=== PATIENT | male | born 1985 | race African-American/Black ===

== ENCOUNTER → 2016-05-06 | Emergency (ER) | payer OTHER ==
[2016-05-06 07:41] VITALS: BP 110/73
--- NOTE | 2016-05-06 08:01 | PROVIDER DOCUMENTATION ---
HPI-Psychological Disorder - General Chief Complaint: Request RX Stated Complaint: ANXIETY/CHEST PAIN Time Seen by Provider: 05/06/16 07:54 Source: patient Allergies/Adverse Reactions: Patient Allergies Allergy/AdvReac Type Severity Reaction Status Date / Time risperidone Allergy Severe involuntary Verified 03/05/16 08:11 lingual movement buspirone HCl * [From BuSpar] Allergy Mild RASH Verified 03/05/16 08:11 mirtazapine [From Remeron] Allergy Mild RASH Verified 03/05/16 08:11 Benzodiazepines Allergy hx of Verified 03/05/16 08:11 abuse of benzos Opioids - Morphine Analogues Allergy hx opioid Verified 03/05/16 08:11 abuse ziprasidone HCl * AdvReac Intermediate "HYPES ME Verified 03/05/16 08:11 [From Geodon] UP" ziprasidone mesylate * AdvReac Intermediate "HYPES ME Verified 03/05/16 08:11 [From Geodon] UP" Home Medications: Home Medication List Medication Instructions Recorded Confirmed Last Taken Type Alprazolam E.r. [Xanax Xr] 1 mg PO QAM #0 tablet 07/05/15 03/05/16 Unknown Rx Fluoxetine [Prozac] 20 mg PO QAM #0 capsule 07/05/15 03/05/16 Unknown Rx Olanzapine [Zyprexa] 15 mg PO BID #0 tablet 07/05/15 03/05/16 Unknown Rx Omeprazole [Prilosec] 40 mg PO DAILY@0700 #0 capsule 07/05/15 03/05/16 Unknown Rx Alprazolam 1 mg PO TID #15 tablet 08/29/15 03/05/16 Unknown Rx Hydroxyzine Pamoate [Vistaril] 25 mg PO Q6H PRN PRN #20 capsule 09/19/15 Unknown Rx Alprazolam [Xanax] 1 mg PO BID #20 tablet 09/25/15 03/05/16 Unknown Rx Alprazolam [Xanax] 1 mg PO TID #30 tablet 03/05/16 Unknown Rx Alprazolam [Xanax] 1 mg PO TID #30 tablet 04/02/16 Unknown Rx Alprazolam [Xanax] 1 mg PO BID #14 tablet 04/16/16 Unknown Rx Alprazolam [Xanax] 1 mg PO BID PRN PRN #30 tablet 04/22/16 Unknown Rx Alprazolam 1 mg PO BID PRN PRN #30 tablet 05/06/16 Unknown Rx - History of Present Illness-Psych Nature of Presenting Problem: psych disabled mentally Onset/Duration: reports: unsure Timing: reports: still present Severity: reports: mild Psychiatric Complaints: reports: anxiety, paranoid Substance Use: reports: benzodiazepines Previous psych related hospitalizations?: Yes Patient arrived by:: private car Similar Symptoms Previously?: Yes Review of Systems - Adult - REVIEW OF SYSTEMS - ADULT Constitutional: reports: no symptoms reported Eyes: reports: no symptoms reported Ears, Nose, Mouth & Throat: reports: no symptoms reported Cardiovascular: reports: no symptoms reported Respiratory: reports: no symptoms reported Gastrointestinal: reports: no symptoms reported Genitourinary: reports: no symptoms reported Musculoskeletal: reports: no symptoms reported Integumentary: reports: no symptoms reported Neurological: reports: no symptoms reported Psychiatric: reports: no symptoms reported Endocrine: reports: no symptoms reported Hematologic/Lymphatic: reports: no symptoms reported Allergic/Immunologic: reports: no symptoms reported All Other Systems: Reviewed and Negative Past History - Adult - PAST MEDICAL HISTORY-ADULT Review of Records: reports: Nursing Assessment Review, Medications Reviewed, Social history reviewed & non-contributory. Major Childhood Illnesses: reports: denies history Cardiovascular: reports: hyperlipidemia Respiratory: reports: sleep apnea Gastrointestinal: reports: denies history Obstetrical/Gynecological: reports: denies history Genitourinary: reports: denies history Musculoskeletal: reports: denies history Neurological: reports: Seizures/Epilepsy Psychiatric: reports: anxiety, ptsd, schizophrenia Endocrine/Immune: reports: thyroid disorder Other Conditions: reports: denies history - PRIOR SURGERIES/PROCEDURES Surgical/Procedure History: reports: none - PRIOR HOSPITALIZATIONS Prior Hospitalizations: reports: for other non-related - IMMUNIZATION STATUS Childhood Immunizations: See Nurse Assessment Flu Vaccine: See Nurse Assessment - FAMILY HISTORY Family History: reviewed, not pertinent Physical Exam-Psych Focus - Physical Exam-Psych Initial Vital Signs Reviewed: Yes Appearance: appropriate appearance, appropriate insight, neat, no apparent distress, no memory impairment, denies illness, alert, anxious Neurological: alert Behavior/Eye Contact/Speech: cooperative Thoughts/Hallucinations: no apparent hallucination HENMT: normocephalic/atraumatic Neck: supple Respiratory: no respiratory distress Cardiovascular: regular rate, rhythm Abdominal Exam: soft Lymphatic: no adenopathy Back Exam: no CVA tenderness Extremity: normal range of motion Integumentary: normal color Departure - Departure Time of Disposition Order: 07:58 DIAGNOSIS: Anxiety Disposition: HOME 01 Certified Medical Emergency: Emergent Condition: Stable Additional Instructions: ED Follow Up Instructions: You have been treated by a care provider in the Emergency Department. These instructions are being provided to you so you can have an understanding of how to care for yourself upon discharge. Upon discharge from the Emergency Department, you are responsible for making arrangements for follow-up care by a physician of your choice. Take all prescribed medications as directed. Return to the Emergency Department immediately for any new or worsening symptoms. You may call the Physician Referral phone number at [phone] to obtain a list of Physicians who are taking new patients. Prescriptions: Alprazolam 1 mg PO BID PRN PRN #30 tablet PRN Reason: Anxiety
== END | disposition home or self-care (01) ==
LOC: P.ED 07:29
DX: F41.9 Anxiety disorder, unspecified (principal); R07.9 Chest pain, unspecified; E07.9 Disorder of thyroid, unspecified; F43.10 Post-traumatic stress disorder, unspecified; F20.9 Schizophrenia, unspecified; Z79.899 Other long term (current) drug therapy
CPT/HCPCS: 99281

== ENCOUNTER 2016-05-20 07:41 | Emergency (ER) ==
[2016-05-20] MEDS ORDERED: XANAX PO ONE (08:03)
--- NOTE | 2016-05-20 09:07 | PROVIDER DOCUMENTATION ---
HPI-General Adult - General Source: patient - History of Present Illness -Gen Adult Nature of Presenting Problems: 31 yo M presents to the ER with complaint of running out of his Xanax, requesting another Rx. Pt states he smoked marijuana this morning. Complains his heart is racing and he is feeling anxious. Associated Symptoms: reports: anxiety <Ros Gonzalez - Last Filed: 05/20/16 09:28> <Lionel Herrera - Last Filed: 05/20/16 09:35> - General Chief Complaint: Request RX Stated Complaint: "ANXIETY" Time Seen by Provider: 05/20/16 07:56 Allergies/Adverse Reactions: Patient Allergies Allergy/AdvReac Type Severity Reaction Status Date / Time risperidone Allergy Severe involuntary Verified 03/05/16 08:11 lingual movement buspirone HCl * [From BuSpar] Allergy Mild RASH Verified 03/05/16 08:11 mirtazapine [From Remeron] Allergy Mild RASH Verified 03/05/16 08:11 Benzodiazepines Allergy hx of Verified 03/05/16 08:11 abuse of benzos Opioids - Morphine Analogues Allergy hx opioid Verified 03/05/16 08:11 abuse ziprasidone HCl * AdvReac Intermediate "HYPES ME Verified 03/05/16 08:11 [From Geodon] UP" ziprasidone mesylate * AdvReac Intermediate "HYPES ME Verified 03/05/16 08:11 [From Geodon] UP" Home Medications: Home Medication List Medication Instructions Recorded Confirmed Last Taken Type Alprazolam E.r. [Xanax Xr] 1 mg PO QAM #0 tablet 07/05/15 03/05/16 Unknown Rx Fluoxetine [Prozac] 20 mg PO QAM #0 capsule 07/05/15 03/05/16 Unknown Rx Olanzapine [Zyprexa] 15 mg PO BID #0 tablet 07/05/15 03/05/16 Unknown Rx Omeprazole [Prilosec] 40 mg PO DAILY@0700 #0 capsule 07/05/15 03/05/16 Unknown Rx Alprazolam 1 mg PO TID #15 tablet 08/29/15 03/05/16 Unknown Rx Hydroxyzine Pamoate [Vistaril] 25 mg PO Q6H PRN PRN #20 capsule 09/19/15 Unknown Rx Alprazolam [Xanax] 1 mg PO BID #20 tablet 09/25/15 03/05/16 Unknown Rx Alprazolam [Xanax] 1 mg PO TID #30 tablet 03/05/16 Unknown Rx Alprazolam [Xanax] 1 mg PO TID #30 tablet 04/02/16 Unknown Rx Alprazolam [Xanax] 1 mg PO BID #14 tablet 04/16/16 Unknown Rx Alprazolam [Xanax] 1 mg PO BID PRN PRN #30 tablet 04/22/16 Unknown Rx Alprazolam 1 mg PO BID PRN PRN #30 tablet 05/06/16 Unknown Rx Alprazolam 1 mg PO BID PRN PRN #30 tablet 05/20/16 Unknown Rx Review of Systems - Adult - REVIEW OF SYSTEMS - ADULT Constitutional: denies: chills, fever Eyes: reports: no symptoms reported Ears, Nose, Mouth & Throat: reports: no symptoms reported Cardiovascular: reports: irregular heart rate (tachycardia). denies: chest pain Respiratory: denies: cough, shortness of breath Gastrointestinal: reports: no symptoms reported Genitourinary: reports: no symptoms reported Musculoskeletal: reports: no symptoms reported Integumentary: reports: no symptoms reported Neurological: reports: no symptoms reported Psychiatric: reports: anxiety. denies: suicidal thoughts Endocrine: reports: no symptoms reported Hematologic/Lymphatic: reports: no symptoms reported Allergic/Immunologic: reports: no symptoms reported All Other Systems: Reviewed and Negative <Ros Gonzalez - Last Filed: 05/20/16 09:28> Past History - Adult - PAST MEDICAL HISTORY-ADULT Review of Records: reports: Nursing Assessment Review, Medications Reviewed Cardiovascular: reports: hyperlipidemia Respiratory: reports: sleep apnea Neurological: reports: Seizures/Epilepsy Psychiatric: reports: anxiety, ptsd, schizophrenia Endocrine/Immune: reports: thyroid disorder - PRIOR SURGERIES/PROCEDURES Surgical/Procedure History: reports: none - PRIOR HOSPITALIZATIONS Prior Hospitalizations: reports: for other non-related - IMMUNIZATION STATUS Childhood Immunizations: See Nurse Assessment Flu Vaccine: See Nurse Assessment <Ros Gonzalez - Last Filed: 05/20/16 09:28> Physical Exam-General - PHYSICAL EXAM-ADULT Initial Vital Signs Reviewed: Yes - CONSTITUTIONAL General Appearance: alert, no apparent distress - EYES Eyes: PERRL/EOMI, pink conjunctivae - HEAD, EARS, NOSE, MOUTH & THROAT HENMT: normocephalic/atraumatic, normal ENT inspection - NECK Neck: supple, normal inspection - RESPIRATORY Respiratory: no respiratory distress, no accessory muscle use - CARDIOVASCULAR Cardiovascular: normal peripheral pulses, tachycardia - MUSCULOSKELETAL Back Exam: no CVA tenderness, no vertebral tenderness Extremity: normal gait, normal inspection - SKIN Integumentary: normal color, warm/dry - NEUROLOGIC Neurologic: grossly normal, no motor/sensory deficits - PSYCHIATRIC Psych/Mental Status: normal mood/affect, normal thought content, normal thought process, oriented x 3 <Ros Gonzalez - Last Filed: 05/20/16 09:28> Progress - PLAN OF CARE/RESULTS Progress/Plan/Lab Results: Vital Signs Temp Pulse Resp BP Pulse Ox 05/20/16 07:46 98.2 F 117 H 18 96/51 99 risperidone Allergy (Severe, Verified 03/05/16 08:11) involuntary lingual movement with risperdal consta buspirone HCl * [From BuSpar] Allergy (Mild, Verified 03/05/16 08:11) RASH mirtazapine [From Remeron] Allergy (Mild, Verified 03/05/16 08:11) RASH Benzodiazepines Allergy (Verified 03/05/16 08:11) hx of abuse of benzos Opioids - Morphine Analogues Allergy (Verified 03/05/16 08:11) hx opioid abuse ziprasidone HCl * [From Geodon] Adverse Reaction (Intermediate, Verified 08:11) "HYPES ME UP" ziprasidone mesylate * [From Geodon] Adverse Reaction (Intermediate, Verified 08:11) "HYPES ME UP" Alprazolam E.r. [Xanax Xr] 1 mg PO QAM #0 tablet 07/05/15 Fluoxetine [Prozac] 20 mg PO QAM #0 capsule 07/05/15 Olanzapine [Zyprexa] 15 mg PO BID #0 tablet 07/05/15 Omeprazole [Prilosec] 40 mg PO DAILY@0700 #0 capsule 07/05/15 Alprazolam 1 mg PO TID #15 tablet 08/29/15 Hydroxyzine Pamoate [Vistaril] 25 mg PO Q6H PRN PRN #20 capsule 09/19/15 Alprazolam [Xanax] 1 mg PO BID #20 tablet 09/25/15 Alprazolam [Xanax] 1 mg PO TID #30 tablet 03/05/16 Alprazolam [Xanax] 1 mg PO TID #30 tablet 04/02/16 Alprazolam [Xanax] 1 mg PO BID #14 tablet 04/16/16 Alprazolam [Xanax] 1 mg PO BID PRN PRN #30 tablet 04/22/16 Alprazolam 1 mg PO BID PRN PRN #30 tablet 05/06/16 Orders Category Date Time Status Alprazolam [Xanax] Med 05/20/16 08:03 Discontinued 1 mg PO NOW ONE <Ros Gonzalez - Last Filed: 05/20/16 09:28> Departure - Departure Time of Disposition Order: 09:28 Certified Medical Emergency: Emergent <Ros Gonzalez - Last Filed: 05/20/16 09:28> - Departure Time of Disposition Order: 09:35 <Lionel Herrera - Last Filed: 05/20/16 09:35> - Departure DIAGNOSIS: Anxiety, Prescription refill Disposition: HOME 01 Condition: Stable Prescriptions: Alprazolam 1 mg PO BID PRN PRN #30 tablet PRN Reason: Anxiety Referrals: Sergio Obrien [Primary Care Provider] - Attestation - Scribe Verification/Attestation Scribe:: Ros Gonzalez Acting as Scribe for:: Lionel Herrera Scribe documention review:: This chart was documented by a scribe and accurately reflects the service the provider performed and the decisions made by the provider. <Ros Gonzalez - Last Filed: 05/20/16 09:28> Physician Attestation
[2016-05-20 09:36] VITALS: BP 103/70
== END 2016-05-20 09:47 | disposition home or self-care (01) ==
LOC: P.ED 07:41
DX: Z76.0 Encounter for issue of repeat prescription (principal); F41.9 Anxiety disorder, unspecified; R00.0 Tachycardia, unspecified; F43.10 Post-traumatic stress disorder, unspecified; F20.9 Schizophrenia, unspecified; E07.9 Disorder of thyroid, unspecified; Z79.899 Other long term (current) drug therapy
CPT/HCPCS: 99282

== ENCOUNTER 2016-11-10 03:42 | Inpatient (IN) ==
[2016-11-10 04:09] LABS: MANUAL DIFF NEEDED? NO
[2016-11-10 04:17] LABS: BASO% 0.4 % (0.0-0.8); EOS# 0.43 X1000 (0.0-0.7); EOS% 9.1 % (0.0-10.0); HEMATOCRIT 41.8 % (42.0-52.0); HEMOGLOBIN 14.8 g/dL (14.0-18.0); IMM GRAN# 0.02 X1000 (0.0-0.04); IMM GRAN% 0.4 % (0.0-0.5); LYMPH# 1.54 X1000 (1.2-3.4); LYMPH% 32.6 % (20.5-51.1); MCH 30.8 PG (27-31); MCHC 35.4 g/dL (33-37); MCV 86.9 FL (81-99); MONO# 0.48 X1000 (0.11-0.59); MONO% 10.2 % (1.7-9.3); MPV 9.8 FL (7.4-10.4); NEUT% 47.3 % (42.2-75.2); PLT 249 X1000 (130-400); RBC 4.81 XMIL (4.7-6.1)
[2016-11-10 04:32] LABS: ACETAMINOPHEN < 1.2 ug/mL (10-30); AGAP 13; ALBUMIN 4.4 g/dL (3.5-5.0); ALKALINE PHOSPHATASE 38 U/L (32-122); BUN 10 mg/dL (8-22); CALCIUM 8.7 mg/dL (8.8-10.2); CHLORIDE 97 mmol/L (98-107); COSMO 269; GOT 20 U/L (10-34); GPT 22 U/L (10-44); POTASSIUM 3.6 mmol/L (3.5-5.1); SODIUM 135 mmol/L (136-145); TCO2 25 mmol/L (25-35); TOTAL PROTEIN 7.8 g/dL (6.3-8.3)
[2016-11-10 04:34] LABS: CK PROFILE 375 U/L (24-204)
[2016-11-10] MEDS ORDERED: NS 1,000 ML IV ONE (04:39)
[2016-11-10] MEDS ORDERED: NS 3,000 ML IV ONE (04:39)
[2016-11-10 04:52] LABS: CK INDEX 0.6 (0.0-2.5); CK-MB 2.26 ng/mL (0.0-5.0)
[2016-11-10] MEDS ORDERED: XYLOCAINE 2% JELLY UROJECT ONE (07:36)
[2016-11-10 08:05] LABS: URINE CULTURE PL NEEDED? NO; URINE SOURCE CATH
[2016-11-10 08:09] LABS: UR AMPHETAMINES QUAL NONE DETECTED (NONE DETECT); UR BARBITUATES QUAL NONE DETECTED (NONE DETECT); UR BENZODIAZEPIN QUAL PRESUMPTIVE POSITIVE (NONE DETECT); UR CANNABINOIDS QUAL NONE DETECTED (NONE DETECT); UR COCAINE QUAL NONE DETECTED (NONE DETECT); UR MDMA QUAL NONE DETECTED (NONE DETECT); UR METHADONE QUAL NONE DETECTED (NONE DETECT); UR METHAMPHETAMINE QUAL PRESUMPTIVE POSITIVE (NONE DETECT); UR OPIATES QUAL NONE DETECTED (NONE DETECT); UR OXYCODONE QUAL NONE DETECTED (NONE DETECT); UR PCP QUAL NONE DETECTED (NONE DETECT); UR TCA QUAL NONE DETECTED (NONE DETECT)
[2016-11-10 08:17] LABS: BILIRUBIN URINE NEGATIVE (NEGATIVE); BLOOD URINE NEGATIVE (NEGATIVE); CLARITY CLEAR (CLEAR); COLOR YELLOW; GLUCOSE URINE NEGATIVE (NEGATIVE); LEUKOCYTES URINE NEGATIVE (NEGATIVE); NITRITE URINE NEGATIVE (NEGATIVE); PROTEIN URINE NEGATIVE (NEGATIVE); UROBILINOGEN URINE NORMAL
[2016-11-10 08:19] LABS: URINE EPITHELIAL CELLS <10 /HPF (<10)
--- NOTE | 2016-11-10 08:58 | Diag Imaging Result Doc PS360 ---
EXAM: CHEST-PORTABLE HISTORY: AMS TECHNIQUE: Single view of the chest was performed portably. COMPARISON: 06/11/2016 FINDINGS: The cardiomediastinal silhouette is within normal limits. The pulmonary vasculature is not congested. No infiltrate, effusion, or pneumothorax is appreciated. IMPRESSION: No acute cardiopulmonary abnormality is identified. Electronically signed by Eugenie Whittaker 11/10/2016 8:56 AM
[2016-11-10 09:32] LABS: ACETAMINOPHEN < 1.2 ug/mL (10-30)
[2016-11-10 10:53] LABS: AGAP 13; BUN 8 mg/dL (8-22); CALCIUM 8.6 mg/dL (8.8-10.2); CHLORIDE 103 mmol/L (98-107); COSMO 275; POTASSIUM 4.4 mmol/L (3.5-5.1); SODIUM 139 mmol/L (136-145); TCO2 22 mmol/L (25-35)
[2016-11-10] MEDS ORDERED: ZOFRAN IV PRN (11:30)
[2016-11-10] MEDS ORDERED: ATIVAN IV PRN (11:31)
[2016-11-10] MEDS: NS 1,000 ML IV SCH ×3 (11:41→20:55)
[2016-11-10] MEDS: PRILOSEC PO SCH (12:37)
[2016-11-10] MEDS ORDERED: ATIVAN IV ONE (12:46)
[2016-11-10] MEDS: ATIVAN IV PRN ×2 (15:27→21:52)
[2016-11-10] MEDS ORDERED: BENADRYL IV ONE (16:44)
[2016-11-10] MEDS: BENADRYL IV PRN (21:52)
[2016-11-11] MEDS: BENADRYL IV PRN ×3 (02:36→17:03)
[2016-11-11] MEDS: ATIVAN IV PRN ×3 (02:37→17:03)
[2016-11-11] MEDS: NS 1,000 ML IV SCH ×3 (03:54→14:22)
[2016-11-11] MEDS: PRILOSEC PO SCH (06:45)
[2016-11-11] MEDS ORDERED: ATIVAN IV ONE (10:08)
[2016-11-11] MEDS ORDERED: PROLIXIN-D IM SCH (12:00)
[2016-11-12] MEDS: NS 1,000 ML IV SCH (00:11)
[2016-11-12] MEDS: BENADRYL IV PRN ×3 (02:40→23:00)
[2016-11-12] MEDS: ATIVAN IV PRN ×2 (02:40→13:43)
[2016-11-12] MEDS: PRILOSEC PO SCH (17:47)
[2016-11-12] MEDS ORDERED: HALDOL IV PRN (17:48)
[2016-11-12] MEDS ORDERED: ATIVAN IV PRN (17:51)
[2016-11-13] MEDS: PRILOSEC PO SCH (07:15)
[2016-11-13] MEDS ORDERED: BENADRYL IM PRN (13:11)
[2016-11-13] MEDS ORDERED: HALDOL IM PRN (13:11)
[2016-11-13] MEDS ORDERED: ATIVAN IM PRN ×2 (13:18→13:22)
[2016-11-13] MEDS: ATIVAN IM PRN (14:06)
[2016-11-13] MEDS: NICODERM PATCH TD SCH (14:06)
[2016-11-13] MEDS: MIRALAX PO SCH (14:06)
[2016-11-14] MEDS: PRILOSEC PO SCH (06:08)
[2016-11-14] MEDS: ATIVAN IM PRN ×2 (10:01→17:44)
[2016-11-14] MEDS: NICODERM PATCH TD SCH (10:01)
[2016-11-14] MEDS: MIRALAX PO SCH (10:02)
[2016-11-14 22:41] VITALS: BP 119/71
== END 2016-11-14 21:00 ==
LOC: P.ED 03:42 → SUATTDRO 09:34 → P.ICU 09:34
PROVIDERS: ATTEND Internal Medicine